=== PATIENT | female | born 1940 | race Caucasian/White ===

== ENCOUNTER 2019-10-13 15:35 | Inpatient (IN) | payer MEDICARE ==
[~2019-10-13] VITALS: Ht 162.6 cm; Wt 70.2 kg
[~2019-10-13 15:35] MED LIST: ASPIRIN325; IBUPROFEN 200200 M1 PO; NORFLEX100 MG PO; PRINIVIL20 MG
[2019-10-13 15:42] VITALS: BP 214/103
[2019-10-13] MEDS ORDERED: NORVASC 2.5 MG2.5 M1 PO (15:56)
[2019-10-13] MEDS ORDERED: LEVO-T75 MCG PO (15:56)
[2019-10-13] MEDS ORDERED: METOPROLOL TART25 MG PO (15:57)
[2019-10-13] MEDS ORDERED: COZAAR 25 MG TA25 M1 PO (15:58)
[2019-10-13] MEDS ORDERED: APAP650 PO (15:59)
[2019-10-13] MEDS ORDERED: BAYER CHEWABLE81 MG PO (15:59)
[2019-10-13] MEDS ORDERED: SIMVASTATIN80 MG PO (16:00)
[2019-10-13] MEDS ORDERED: TRAZODONE HCL50 MG PO (16:00)
[2019-10-13 16:26] LABS: ABSOLUTE BASOPHILS 0.1 thou/uL (0.0-0.2); ABSOLUTE EOSINOPHILS 0.1 thou/uL (0.0-0.7); ABSOLUTE LYMPHOCYTES 1.6 thou/uL (0.8-5.3); ABSOLUTE MONOCYTES 0.8 thou/uL (0.0-1.2); ABSOLUTE NEUTROPHILS 3.4 thou/uL (1.6-8.1); BASOPHILS 0.9 %; EOSINOPHILS 2.3 %; HEMATOCRIT 38.5 % (37.0-47.0); HEMOGLOBIN 13.1 gm/dL (12.0-15.0); MCH 30.2 pg (26.0-34.0); MCHC 33.9 g/dL (28.0-37.0); MONOCYTES 13.1 %; MPV 8.4 fl. (7.2-11.1); NUCLEATED RBCS 0 /100WBC; PLATELET COUNT* 156 thou/uL (150-400); POLYS 56.7 %; RBC 4.33 mil/uL (4.20-5.00); RDW-CV 12.9 % (10.5-14.5)
[2019-10-13 16:33] LABS: CREATININE 1.9 mg/dL (0.6-1.3); POTASSIUM 4.4 mmol/L (3.5-5.1)
[2019-10-13 16:38] LABS: URINE BILIRUBIN NEGATIVE (Negative); URINE BLOOD NEGATIVE (Negative); URINE CLARITY CLEAR; URINE COLOR YELLOW; URINE GLUCOSE-RANDOM NEGATIVE (Negative); URINE KETONES NEGATIVE (Negative); URINE LEUKOCYTES-REFLEX NEGATIVE (Negative); URINE NITRITE-REFLEX NEGATIVE (Negative); URINE PROTEIN NEGATIVE (Negative); URINE UROBILINOGEN 0.2 E.U./dl (0.2-1.0)
[2019-10-13 16:46] LABS: ALBUMIN 3.6 g/dL (3.4-5.0); TOTAL BILIRUBIN 0.6 mg/dL (<0.1-1.0); TOTAL PROTEIN 6.7 g/dL (6.4-8.2)
[2019-10-13 20:58] VITALS: BP 141/59
[2019-10-13 21:30] VITALS: BP 184/67
[2019-10-13 22:30] VITALS: BP 184/64
[2019-10-13 23:34] VITALS: BP 168/55
[2019-10-14] VITALS (7 sets, daily range): BP systolic 109–203; BP diastolic 56–73
--- NOTE | 2019-10-14 07:36 | NUR ---
Pt admitted for htn urgency. Pt hypertensive on admission to floor at 184/64. Dr. Schwab was paged and 10mg IVP hydralazine was ordered and administered. On reassessment BP was 184/67. Dr. Schwab was paged again and 0.1 mg clonidine PO was ordered. Pt BP was reassessed before administration and BP had decreased to 165/55. Clonidine was not administered at this time. By 0400 vital signs BP had further decreased to 109/61 without additional intervention. Pt is aox4, running SR to s-teofilo w/ PVCs on telemetry. Respirations are even and unlabored on room air. Pt is medically stable at this time.
--- NOTE | 2019-10-14 14:55 | 2DMMODE ---
[place] [address] 2 D/M-MODE ECHOCARDIOGRAM Name: PRASANNA VILLAGOMEZ NAYELI Room: [address] ADM IN [facility]#: [id number] Admission: 10/13/19 Attend Phys: Yusef Schwab Discharge: Date of : 40 Date of Service: 10/14/19 1453 Report #: [id number] THIS REPORT FOR: cc: FAM - No family physician/PCP FAM - No family physician/PCP Davon Mcknight MD [facility] ~ APPROVED REPORT Study performed: 10/14/2019 11:52:57 EXAM: Comprehensive 2D, Doppler, and color-flow Echocardiogram Patient Location: In-Patient Room #: [facility] Status: routine BSA: 1.73 HR: 60 bpm BP: 191/63 mmHg Rhythm: NSR Other Information Study Quality: Good Indications Chest Pain Hypertension/HDD 2D Dimensions IVSd: 9.90 (7-11mm) LVOT Diam: 20.11 (18-24mm) LVDd: 45.16 mm PWd: 8.49 (7-11mm) Ascending Ao: 29.67 (22-36mm) LVDs: 27.32 (25-40mm) Aortic Root: 31.76 mm Volumes Left Atrial Volume (Systole) LA ESV Index: 37.20 mL/m2 Aortic Valve AoV Peak Wilbert.: 1.27 m/s AO Peak Gr.: 6.40 mmHg LVOT Max P.31 mmHg AO Mean Gr.: 3.15 mmHg LVOT Mean P.20 mmHg LVOT Max V: 1.15 m/s AO V2 VTI: 29.49 cm LVOT Mean V: 0.67 m/s MAGDIEL (VTI): 3.09 cm2 LVOT V1 VTI: 28.72 [place] [address] 2 D/M-MODE ECHOCARDIOGRAM Name: PRASANNA VILLAGOMEZ Room: [address] IN [facility]#: [id number] Admission: 10/13/19 Attend Phys: Yusef Schwab Discharge: Date of : 40 Date of Service: 10/14/19 1453 Report #: [id number] Mitral Valve E/A Ratio: 1.16 MV Decel. Time: 232.06 ms MV E Max Wilbert.: 1.00 m/s MV PHT: 67.30 ms MVA (PHT): 3.27 cm2 TDI E/Lateral E': 9.09 E/Medial E': 11.11 Medial E' Wilbert.: 0.09 m/s Lateral E' Wilbert.: 0.11 m/s Pulmonary Valve PV Peak Wilbert.: 1.01 m/s PV Peak Gr.: 4.09 mmHg Tricuspid Valve RAP Estimate: 5.00 mmHg TR Peak Gr.: 26.02 mmHg RVSP: 31.00 mmHg PA Pressure: 31.00 mmHg Left Ventricle The left ventricle is normal size. There is normal LV segmental wall motion. There is normal left ventricular wall thickness. Left ventricular systolic function is normal. LVEF is 55-60%. The left ventricular diastolic function is normal. Right Ventricle The right ventricle is normal size. The right ventricular systolic function is normal. Atria Left atrium is mildly dilated. The right atrium size is normal. Aortic Valve The aortic valve is normal in structure. Trace aortic regurgitation. There is no aortic valvular stenosis. Mitral Valve The mitral valve is normal in structure. Trace mitral regurgitation. No evidence of mitral valve stenosis. Tricuspid Valve The tricuspid valve is normal in structure. Mild tricuspid regurgitation. The RVSP is 30-[place] [address] 2 D/M-MODE ECHOCARDIOGRAM Name: PRASANNA VILLAGOMEZ Room: [address]#: [id number] Admission: 10/13/19 Attend Phys: Yusef Schwab Discharge: Date of : 40 Date of Service: 10/14/19 1453 Report #: [id number] Pulmonic Valve The pulmonary valve is normal in structure. Trace pulmonic regurgitation. Great Vessels The aortic root is normal in size. IVC is normal in size and collapses >50% with inspiration. Pericardium There is no pericardial effusion. <Conclusion> The left ventricle is normal size. There is normal left ventricular wall thickness. Left ventricular systolic function is normal. LVEF is 55-60%. The left ventricular diastolic function is normal. Left atrium is mildly dilated. Trace aortic regurgitation. Trace mitral regurgitation. Mild tricuspid regurgitation. The RVSP is 30-35 mmHg. IVC is normal in size and collapses >50% with inspiration. <ELECTRONICALLY SIGNED> By: Davon Mcknight MD, FACC 10/14/19 1453 1453 1453 Davon Mcknight MD, FACC /INF
--- NOTE | 2019-10-14 15:36 | NUR ---
Pt is A&O. Resides at home alone. Active and independent, Pt stated "I thought I was a kid until this hospital stay, now I realize that I am old." No DME. No hx of HH or SNF. Goal is home at [place]. No needs anticipated.
--- NOTE | 2019-10-14 17:03 | EKG ---
[place] [address] ELECTROCARDIOGRAM REPORT Name: PRASANNA VILLAGOMEZ Room: [address] ADM IN .R.#: [id number] Admission: 10/13/19 Attend Phys: Yusef Schwab Discharge: Date of : 40 Date of Service: 10/13/19 1542 Report #: [id number] THIS REPORT FOR: //name// [facility] ED Test Date: 2019-10-13 Test Time: 15:42:52 Pat Name: PRASANNA VILLAGOMEZ Department: Room: [facility] Gender: F Appliance Servicer: : 1940 Requested By: Colt Kemp Order Number: [id number] MD: Davon Mcknight Measurements Intervals [place] Rate: 56 P: 28 NV: 182 QRS: 26 QRSD: 100 T: 43 QT: 443 QTc: 428 Interpretive Statements Sinus rhythm Compared to ECG 12/21/2011 19:00:02 No significant changes Electronically Signed On 10-14-2019 17:01:57 CDT by Davon Mcknight [email or web address] <ELECTRONICALLY SIGNED> By: Davon Mcknight MD, FACC 10/14/19 1701 1542 1542 Davon Mcknight MD, [facility] /EPI
[2019-10-15 00:08] VITALS: BP 153/49
[2019-10-15 04:36] VITALS: BP 138/51
--- NOTE | 2019-10-15 07:02 | NUR ---
Pt hypertensive throughout shift. Pt BP was 203/73 at 2000. 10mg hydralazine IVP was administered. BP was 195/[address] Sheets was paged. Per physician, no additional intervention was needed at that time due to newly started BP meds. BP had decreased without further intervention at 0000 to 153/49 and further decreased to 138/51 at 0400. Pt is aox4, running SR to s-teofilo on telemetry, respirations are even and unlabored on room air. Pt is medically stable at this time.
[2019-10-15 07:30] LABS: ANION GAP 9 mmol/L (7-16); BUN 25 mg/dL (7-18); CALCIUM 8.6 mg/dL (8.5-10.1); CHLORIDE 110 mmol/L (98-107); CHOLESTEROL 139 mg/dL (<200); CO2 25 mmol/L (21-32); CREATININE 1.7 mg/dL (0.6-1.3); GLUCOSE 88 mg/dL (70-99); HDL CHOLESTEROL 43 mg/dL (>40); LDL CHOLESTEROL 81 mg/dL (<100); POTASSIUM 3.8 mmol/L (3.5-5.1); SERUM ASSESSMENT Clear; SODIUM 144 mmol/L (136-145); TC:HDL 3.2 Ratio (Not establshd); TRIGLYCERIDE 79 mg/dL (<150); VLDL 16 mg/dL (<40)
[2019-10-15 08:00] VITALS: BP 156/54
[2019-10-15 12:00] VITALS: BP 182/65
[2019-10-15 16:00] VITALS: BP 137/90
--- NOTE | 2019-10-15 19:00 | NUR ---
ASSUMED PT CARE AT 0730. ASSESSMENT COMPLETED CHARTED. ABLE TO MAKE NEEDS KNOWN. IV FLUIDS STOPPED PER D.O. AND PT WAS HAPPY ABOUT THAT NEWS. NO C/O PAIN OR DISCOMFORT. UP AD FAYE IN ROOM. WILL CONTINUE TO MONITOR.
[2019-10-15 20:53] VITALS: BP 182/67
[2019-10-16] VITALS: BP 142/46
[2019-10-16 03:40] VITALS: BP 148/52
[2019-10-16 05:52] LABS: CALCIUM 8.7 mg/dL (8.5-10.1); CREATININE 1.7 mg/dL (0.6-1.3)
[2019-10-16 08:00] VITALS: BP 167/62
[2019-10-16 13:00] VITALS: BP 167/62
[2019-10-16] MEDS ORDERED: CATAPRES0.1 MG PO (13:24)
--- NOTE | 2019-10-16 16:25 | NUR ---
ASSUMED PT CARE AT 0730. ASSESSMENT COMPLETED CHARTED. ABLE TO MAKE NEEDS KNOWN. NO C/O PAIN OR DISCOMFORT. UP AD FAYE. WATCHING BP. DISCHARGE APPROVED, DISCHARGE PAPERWORK WENT OVER WITH PT. PT HAD TO WAIT FOR RIDE, LEFT AROUND 1615 TO FRIENDS CAR. IV AND HEART MONITOR REMOVED. NO COMMENTS, QUESTIONS OR CONCERNS NOTED.
== END 2019-10-16 16:15 | disposition home or self-care (01) | DRG 304 ==
LOC: M.ERS 15:35 → M.2W 17:17 → M.TBA-ER 17:17 → M.2W 21:00
PROVIDERS: Physician Assistant; Registered Nurse; ADMIT Internal Medicine
DX: I16.1 Hypertensive emergency (principal); N17.0 Acute kidney failure with tubular necrosis; N18.4 Chronic kidney disease, stage 4 (severe); R00.1 Bradycardia, unspecified; E78.5 Hyperlipidemia, unspecified; E03.9 Hypothyroidism, unspecified; I73.9 Peripheral vascular disease, unspecified; I65.22 Occlusion and stenosis of left carotid artery; I12.9 Hypertensive chronic kidney disease with stage 1 through stage 4 chronic kidney disease, or unspecified chronic kidney disease; Z90.710 Acquired absence of both cervix and uterus; Z86.718 Personal history of other venous thrombosis and embolism; Z90.49 Acquired absence of other specified parts of digestive tract; Z88.0 Allergy status to penicillin; Z95.820 Peripheral vascular angioplasty status with implants and grafts; Z79.899 Other long term (current) drug therapy